=== PATIENT | male | born 1950 | race Caucasian/White ===

== ENCOUNTER 2016-12-10 19:30 | Inpatient (IN) ==
[2016-12-10] MEDS ORDERED: Albuterol 2.5 MG/3 ML NEBULIZER IH ONE (20:08)
--- NOTE | 2016-12-10 20:11 | Emergency Department Note ---
Disposition Clinical Impression: Pneumonia Qualifiers: Pneumonia type: due to unspecified organism Laterality: left Lung location: lower lobe of lung Qualified Code(s): J18.1 - Lobar pneumonia, unspecified organism Disposition: Admitted As Inpatient Condition: Good Referrals: Holly Garg CNP [Primary Care Provider] - Forms: ED Satisfaction Letter Time of Disposition: 22:42 URI/Sore Throat HPI - General Chief Complaint: ED Upper Respiratory Infection Stated Complaint: Cough, fever, chills onset 2 days Time Seen by Provider: 12/10/16 20:05 Source: patient, family Mode of arrival: ambulatory Limitations: no limitations Nursing Notes Reviewed: Yes Vital Signs Reviewed: Yes - History of Present Illness HPI Narrative: 66-year-old white male, history of hypertension and diabetes mellitus, presents with upper respiratory tract symptoms that started on Tuesday. He first noticed a nonproductive cough. On he began having chills and fever. No chest pain. He did notice feeling short of breath, particularly with exertion. He did notice wheezing. He went to [facility] urgent care. He had a chest x-ray done which showed bibasilar atelectasis. He had a little into screen done which was negative. His O2 saturations were low, at 89% on room air. He was given a DuoNeb. He was also noted to be febrile at 101.8. He was sent here for further evaluation. Pt Subjective Complaint: fever, cough Onset (ago): day(s) (3) Duration: intermittent Severity: moderate Improves with: nothing Worsens with: nothing If sputum, description: other (None) Associated symptoms: Reports: fever, chills, cough, shortness of breath, other ( Wheezing) Treatments prior to arrival: other (Do a nap at urgent care.) - Related Data Home Medications Medication Instructions Recorded Confirmed Aspirin [Ecotrin] 325 mg PO DAILY 12/10/16 12/10/16 Carvedilol 3.125 mg PO DAILY 12/10/16 12/10/16 Clopidogrel [Plavix] 75 mg PO DAILY 12/10/16 12/10/16 Fenofibrate [Tricor] 54 mg PO DAILY 12/10/16 12/10/16 Insulin Glargine,Hum.rec.anlog 70 unit SQ HS 12/10/16 12/10/16 [Lantus Solostar] Insulin LISPRO [Humalog] 100 unit SQ TIDWM 12/10/16 12/10/16 Lisinopril [Zestril] 10 mg PO BID 12/10/16 12/10/16 Metformin HCl [Glucophage] 1,000 mg PO DAILY 12/10/16 12/10/16 Simvastatin [Zocor] 40 mg PO HS 12/10/16 12/10/16 Allergies Allergy/AdvReac Type Severity Reaction Status Date / Time No Known Allergies Allergy Verified 12/10/16 18:24 All systems ED: reviewed and negative except as stated. Constitutional: Reports: fever, chills Eyes: Denies: eye discharge ENT ED: Denies: ear pain, throat pain Cardiovascular: Denies: chest pain, palpitations Respiratory: Reports: cough, dyspnea, wheezes. Denies: sputum production Gastrointestinal: Denies: abdominal pain, nausea, vomiting, diarrhea Genitourinary: Denies: urgency, dysuria, frequency Integumentary: Denies: rash Neurological: Denies: headache, weakness URI PMH - Past Medical History Medical history: Reports: diabetes, hypertension, myocardial infarction, renal disease - Social History Smoking Status: Never smoker Alcohol use: Reports: none Drug use: Reports: none Physical Exam - General Limitations: no limitations General appearance: alert, in no apparent distress - Head Head exam: atraumatic, normocephalic - Eye Eye exam: Present: PERRL, EOMI. Absent: scleral icterus, conjunctival injection - ENT ENT exam: normal oropharynx, mucous membranes moist, TM's normal bilaterally - Neck Neck exam: Present: normal inspection, full ROM, trachea midline. Absent: lymphadenopathy - Respiratory Respiratory exam: Present: wheezes (Bilateral, expiratory, worse on expiration.) , other (Decreased breath sounds in both bases with rales in the left base). Absent: respiratory distress - Cardiovascular Cardiovascular exam: Present: regular rate, normal rhythm, systolic murmur ( Left sternal border, 2/6) - Abdominal Exam Abdominal exam: Present: soft, Non-Tender, other (Obese). Absent: organomegaly , mass - Extremities Exam Extremities exam: Present: full ROM, normal capillary refill. Absent: pedal edema, calf tenderness - Neurological Exam Neurological exam: Present: alert, oriented X3, normal gait. Absent: motor sensory deficit - Psychiatric Psychiatric exam: Present: normal affect, normal mood - Skin Skin exam: Present: warm, dry, intact, normal color. Absent: cyanosis, diaphoresis, erythema Course Vital Signs Temperature 101.1 F H 12/10/16 19:33 Pulse Rate 97 12/10/16 19:33 Respiratory Rate 16 12/10/16 19:33 Blood Pressure 119/69 12/10/16 19:33 O2 Sat by Pulse Oximetry 93 12/10/16 19:33 Temperature 101.1 F H 12/10/16 21:26 Pulse Rate 97 12/10/16 21:26 Respiratory Rate 18 12/10/16 21:26 Blood Pressure 121/59 12/10/16 20:33 O2 Sat by Pulse Oximetry 95 12/10/16 21:26 Oxygen Delivery Oxygen Delivery Nasal Cannula Upper Respiratory Infection - MDM Narrative Medical decision making narrative: Based on his clinical presentation, his x-ray appearance, his fever I believe he has a left lower lip. Has bronchospasm with hypoxia. He will prior hospitalization. There is no indication that a septic. He is improved with bronchodilators. His fever was treated. I have initiated IV Rocephin and azithromycin. Blood cultures were obtained prior to antibiotic administration. Dr. Caldera. He has accepted the patient for admission. - Medical Records Medical records reviewed: Yes I reviewed the patient's medical records. Reviewed patient's old medical records, in particular his urgent care visit that occurred just prior to presenting here. His influenza screen was negative. His chest x-ray was read as bibasilar atelectasis. I did review the chest x-ray, I believe that there is an infiltrate in the left base, the left hemidiaphragm is somewhat obscured, and on the lateral view appears to be some infiltrate posteriorly. He has no old EKGs available for comparison. - Lab Data Lab results reviewed: Yes I reviewed the patient's lab results. Result diagrams: 12/10/16 20:24 12/10/16 20:24 Lab Results 12/10/16 12/10/16 12/10/16 Range/Units 20:08 20:24 20:24 WBC 9.8 (4.3-11.1) K/mcL RBC 4.78 (4.19-5.50) M/mcL Hgb 14.2 (12.9-16.9) g/dL Hct 41.6 (37.5-50.1) % MCV 87.0 (83.0-100.0) fL MCH 29.7 (28.0-33.3) pg MCHC 34.1 (31.6-35.5) g/dL RDW 12.9 (11.5-14.5) % Plt Count 171 (140-400) K/mcL MPV 10.9 (9.4-12.4) fL Immature Gran % 0.4 (0-4) % Seg Neutrophils % 82.9 % Lymphocytes % 8.6 % Monocytes % 7.9 % Eosinophils % 0.0 % Basophils % 0.2 % Neutrophils # 8.1 (1.6-8.9) K/mcL Lymphocytes # 0.8 (0.6-4.6) K/mcL Monocytes # 0.8 (0.0-1.3) K/mcL Eosinophils # 0.0 (0.0-0.6) K/mcL Basophils # 0.0 (0.0-0.2) K/mcL Sodium 139 (136-145) mEq/L Potassium 4.2 (3.5-4.5) mEq/L Chloride 99 (98-109) mEq/L Carbon Dioxide 23 (19-29) mEq/L BUN 16 (8-26) mg/dL Creatinine 1.39 H (0.72-1.25) mg/dL Est GFR ( Amer) > 60 (> 60) Est GFR (Non-Af Amer) 51 L (> 60) BUN/Creatinine Ratio 12 (6-26) Glucose 113 H (70-99) mg/dL Calculated Osmolality 290 (280-300) Calcium 9.1 (8.6-10.8) mg/dL Total Bilirubin 0.8 (0.2-1.2) mg/dL AST 36 H (5-34) Units/L ALT 42 (0-55) Units/L Alkaline Phosphatase 47 (38-126) Units/L Troponin I 0.02 (0-0.03) ng/mL B-Natriuretic Peptide (0-100) pg/mL Serum Total Protein 7.4 (6.0-8.3) g/dL Albumin 3.5 (3.5-5.0) g/dL Globulin 3.9 H (2.4-3.5) g/dL Albumin/Globulin Ratio 0.9 L (1.1-2.2) 12/10/16 Range/Units 20:24 WBC (4.3-11.1) K/mcL RBC (4.19-5.50) M/mcL Hgb (12.9-16.9) g/dL Hct (37.5-50.1) % MCV (83.0-100.0) fL MCH (28.0-33.3) pg MCHC (31.6-35.5) g/dL RDW (11.5-14.5) % Plt Count (140-400) K/mcL MPV (9.4-12.4) fL Immature Gran % (0-4) % Seg Neutrophils % % Lymphocytes % % Monocytes % % Eosinophils % % Basophils % % Neutrophils # (1.6-8.9) K/mcL Lymphocytes # (0.6-4.6) K/mcL Monocytes # (0.0-1.3) K/mcL Eosinophils # (0.0-0.6) K/mcL Basophils # (0.0-0.2) K/mcL Sodium (136-145) mEq/L Potassium (3.5-4.5) mEq/L Chloride (98-109) mEq/L Carbon Dioxide (19-29) mEq/L BUN (8-26) mg/dL Creatinine (0.72-1.25) mg/dL Est GFR ( Amer) (> 60) Est GFR (Non-Af Amer) (> 60) BUN/Creatinine Ratio (6-26) Glucose (70-99) mg/dL Calculated Osmolality (280-300) Calcium (8.6-10.8) mg/dL Total Bilirubin (0.2-1.2) mg/dL AST (5-34) Units/L ALT (0-55) Units/L Alkaline Phosphatase (38-126) Units/L Troponin I (0-0.03) ng/mL B-Natriuretic Peptide 40 (0-100) pg/mL Serum Total Protein (6.0-8.3) g/dL Albumin (3.5-5.0) g/dL Globulin (2.4-3.5) g/dL Albumin/Globulin Ratio (1.1-2.2) - Radiology Data Radiology results reviewed: Yes I reviewed the patient's radiology results. X-ray: PA and lateral, bibasilar atelectasis per the radiologist. I believe the lower lobe. This film was done at the urgent care today. - EKG Data EKG attestation: Yes I reviewed and interpreted this EKG. EKG results narrative: Sinus rhythm, rate of 94, left anterior fascicular block, poor R-wave progression, age indeterminate anterior infarct, voltage criteria for LVH. Rhythm strip shows sinus rhythm with rate of 94, DE interval 170 ms, QRS of 98 ms with no other ectopy as interpreted by me. There are no old EKGs available for comparison.
[2016-12-10] MEDS ORDERED: CefTRIAXone 1,000 MG in D5% in Water (Mini-Bag+) 100 ML IVPB ONE (20:26)
[2016-12-10] MEDS ORDERED: Azithromycin 500 MG in D5% in Water 250 ML IVPB ONE (20:26)
[2016-12-10 20:31] LABS: Basophils % 0.2 %; Hematocrit 41.6 % (37.5-50.1); Hemoglobin 14.2 g/dL (12.9-16.9); Immature Granulocytes % 0.4 % (0-4); Lymphocytes # 0.8 K/mcL (0.6-4.6); Lymphocytes % 8.6 %; Mean Corpuscular HGB Conc 34.1 g/dL (31.6-35.5); Mean Corpuscular Hemoglobin 29.7 pg (28.0-33.3); Mean Platelet Volume 10.9 fL (9.4-12.4); Monocytes # 0.8 K/mcL (0.0-1.3); Monocytes % 7.9 %; Neutrophils # 8.1 K/mcL (1.6-8.9); Platelet Count 171 K/mcL (140-400); Red Blood Count 4.78 M/mcL (4.19-5.50); Red Cell Distribution Width 12.9 % (11.5-14.5); Segmented Neutrophils % 82.9 %
[2016-12-10 20:46] LABS: Alanine Aminotransferase 42 Units/L (0-55); Albumin 3.5 g/dL (3.5-5.0); Albumin/Globulin Ratio 0.9 (1.1-2.2); Alkaline Phosphatase 47 Units/L (38-126); Aspartate Amino Transferase 36 Units/L (5-34); BUN/Creatinine Ratio 12 (6-26); Bilirubin,Total 0.8 mg/dL (0.2-1.2); Blood Urea Nitrogen 16 mg/dL (8-26); Calcium 9.1 mg/dL (8.6-10.8); Carbon Dioxide 23 mEq/L (19-29); Chloride 99 mEq/L (98-109); Globulin 3.9 g/dL (2.4-3.5); Glucose 113 mg/dL (70-99); Osmolality,Calculated 290 (280-300); Potassium 4.2 mEq/L (3.5-4.5); Sodium 139 mEq/L (136-145); Total Protein 7.4 g/dL (6.0-8.3); eGFR For African Americans > 60 (> 60); eGFR For Non-African Americans 51 (> 60)
[2016-12-11] MEDS ORDERED: Acetaminophen 325 MG TABLET PO PRN (00:32)
[2016-12-11] MEDS ORDERED: Azithromycin 500 MG in D5% in Water 250 ML IVPB SCH ×2 (00:32→12:00)
[2016-12-11] MEDS ORDERED: Naloxone 0.4 MG/ML INJ IVP PRN (00:32)
[2016-12-11] MEDS ORDERED: CefTRIAXone 1,000 MG in D5% in Water (Mini-Bag+) 100 ML IVPB SCH (00:32)
[2016-12-11] MEDS: MethylPREDNISolone 40 MG/ML VIAL IVP SCH ×2 (02:31→08:46)
[2016-12-11] MEDS: Albuterol 2.5 MG/3 ML NEBULIZER IH SCH ×4 (04:15→21:44)
[2016-12-11] MEDS: CefTRIAXone 1,000 MG in D5% in Water (Mini-Bag+) 100 ML IVPB SCH (06:03)
[2016-12-11] MEDS ORDERED: Dextrose Gel 15 GM PO PRN ×2 (07:43)
[2016-12-11] MEDS ORDERED: D5% in Water 1,000 ML IVC PRN (07:43)
[2016-12-11] MEDS ORDERED: *HR* Dextrose 50 % in Water (Syg) 50 ML SYRINGE IVP PRN (07:43)
[2016-12-11] MEDS ORDERED: INSULIN LISPRO 100 UNIT SQ SCH (08:00)
[2016-12-11] MEDS ORDERED: Insulin LISPRO 300 UNITS/3 ML VIAL SQ SCH ×2 (08:00→21:00)
[2016-12-11] MEDS: Insulin LISPRO 300 UNITS/3 ML VIAL SQ SCH ×4 (08:47→23:16)
[2016-12-11] MEDS: Aspirin Enteric Coated 325 MG Tablet PO SCH (08:48)
[2016-12-11] MEDS: *HR* Metformin 500 MG TABLET PO SCH (08:49)
[2016-12-11] MEDS: Fenofibrate 54 MG TABLET PO SCH (08:50)
[2016-12-11 13:25] LABS: Bilirubin,Urine Negative (Negative); Blood,Urine Negative (Negative); Clarity,Urine Clear (Clear); Color,Urine Yellow (Yellow); Glucose,Urine (UA) >=1000 mg/dL (Normal); Ketones,Urine Trace mg/dL (Negative); Leukocyte Esterase,Urine Negative (Negative); Nitrite,Urine Negative (Negative); Protein,Urine Negative (Neg-Trace); Urobilinogen,Urine Normal (Normal)
--- NOTE | 2016-12-11 16:16 | Internal Med History&Physical ---
Date of Encounter: 12/11/16 Time of Encounter: 15:45 Assessment and Plan (1) Pneumonia Current visit: Yes Status: Acute He has been started on Rocephin and Zithromax. I will add lactobacillus and Robitussin. Qualifiers: Pneumonia type: due to unspecified organism Laterality: left Lung location: lower lobe of lung Qualified Code(s): J18.1 - Lobar pneumonia, unspecified organism (2) Azotemia Current visit: Yes Status: Acute Acute. Creatinine was 0.93 on 10/27/2016 with estimated GFR greater than 60. We will recheck labs in a.m. (3) Hypertension Current visit: Yes Status: Chronic Continue Coreg and Zestril Qualifiers: Hypertension type: essential hypertension Qualified Code(s): I10 - Essential (primary) hypertension (4) DM type 2 (diabetes mellitus, type 2) Current visit: Yes Status: Chronic Continue Lantus, Glucophage, and Accu-Cheks with SSI Qualifiers: Diabetes mellitus complication status: with kidney complications Diabetes mellitus complication detail: with microalbuminuria Diabetes mellitus care home insulin use: with ocean transportation intermediary use Qualified Code(s): E11.29 - Type 2 diabetes mellitus with other diabetic kidney complication; R80.9 - Proteinuria, unspecified; Z79.4 - half-way (current) use of insulin Internal Medicine - H&P: HPI Chief complaint: Cough with dyspnea Admitted From: Home Plans for Post Hospital Care: Home History of present illness: Mr. David is a 66 year old male who was sent to the emergency room from urgent care after he presented with worsening cough over the preceding 2 days. The cough was productive of greenish sputum occasionally. He had developed a fever at work earlier the day of admission and returned home early. He was evaluated in emergency room and felt to have bibasilar pneumonia. He was admitted to [facility] floor for ongoing care needs. He states he is a lifelong nonsmoker. He had pneumonia on a previous occasion approximately 40 years ago. He has worked 2 years in a [employer] yard with minimal exposure to fumes or toxins. He does not have other documented chronic lung disease. Past Med Surg Social Fam HX - Past Medical History Medical history: diabetes, hyperlipidemia, hypertension, myocardial infarction, renal disease Psychiatric history: no psych history - Social History Smoking Status: Never smoker Smokeless Tobacco Status: No Alcohol use: none Drug use: none - Family History Father Name: viola david Living Status: Hx Family Cardiac Disorders: Yes Internal Medicine - H&P: Meds Aspirin [Ecotrin] 325 mg PO DAILY 12/10/16 [History] Carvedilol 3.125 mg PO DAILY 12/10/16 [History] Clopidogrel [Plavix] 75 mg PO DAILY 12/10/16 [History] Fenofibrate [Tricor] 54 mg PO DAILY 12/10/16 [History] Insulin Glargine,Hum.rec.anlog [Lantus Solostar] 70 unit SQ HS 12/10/16 [History ] Lisinopril [Zestril] 10 mg PO BID 12/10/16 [History] Metformin HCl [Glucophage] 1,000 mg PO DAILY 12/10/16 [History] Simvastatin [Zocor] 40 mg PO HS 12/10/16 [History] Insulin LISPRO [Humalog Kwikpen U-100] 0 unit SQ TIDWM 12/11/16 [History] Allergies No Known Allergies Allergy (Verified 12/10/16 18:24) All Systems PM: A 10-system review of systems was performed and is negative for pertinent findings except as documented above in the HPI. Review of systems: Gen.: He states he has intentionally lost 6 pounds in the past 2 months. His weight had been stable previously. Cardiovascular: He has history of hypertension and known ASHD status post NH approximately 5 years ago. He had 2 stents placed. He has not had stress test or heart catheter since then but is scheduled for a stress test later this month. He denies heart failure DVT or pulmonary embolus. Respiratory: As per history of present illness GI: He denies disorders of his liver gallbladder or exocrine pancreas : He reports he has been diagnosed with proteinuria but denies other kidney or bladder disorders. Neurologic: He denies large distribution strokes or seizures Endocrine: He was diagnosed with DM 2 approximately 1996. He has hyperkalemia but denies thyroid disease Hematology/oncology: Denies blood disorders cancers or anemia Psychiatric: He denies anxiety depression or other mental health issues Musk skeletal: He denies arthritis gout or other bone joint or muscle disorders. - Constitutional Vitals: Temp Pulse Resp BP Pulse Ox 98.7 F 83 16 103/54 94 12/11/16 12:00 12/11/16 12:00 12/11/16 12:00 12/11/16 12:00 12/11/16 12:00 Exam: Gen.: He is a well-developed well-nourished male who appears in no severe distress at present time HEENT: Head is atraumatic and normocephalic. Eyes: EOMI. There is no scleral icterus. Mouth: Mucosa is moist. Neck: Supple and nontender. There is no thyromegaly or adenopathy noted. Heart: Regular without murmurs gallops or ectopics. Lungs: He has diminished breath sounds diffusely. There is egophony in the left mid and lower lung torres posteriorly. No wheezes or crackles are heard. Abdomen: Soft and nontender. No masses or guarding are noted. Extremities: There is no cyanosis edema or clubbing noted. Dorsalis pedis and posttibial pulses are 1-2 over 2 bilaterally. Neurologic: Mental status: He is talkative and a good historian. Cranial nerves : Smile is symmetric. Forehead wrinkles bilaterally. Tongue protrudes midline. EOMI. Motor: There is no pronator drift. Cerebellar: Finger to nose is intact bilaterally. Skin: Warm and dry Internal Med - H&P Results - Labs CBC & Chem 7: 12/10/16 20:24 12/10/16 20:24 Labs: Urine 12/11/16 Range/Units 10:10 Urine Color Yellow (Yellow) Urine Clarity Clear (Clear) Urine pH 5.0 (5.0-8.0) pH Units Ur Specific [place] 1.010 (1.010-1.025) Urine Protein Negative (Neg-Trace) mg/dL Urine Glucose (UA) >=1000 H (Normal) mg/dL
[2016-12-11] MEDS: *HR* Enoxaparin 40 MG/0.4 ML SYRINGE SQ SCH (17:02)
[2016-12-11] MEDS ORDERED: Insulin DETEMIR 100 UNIT/ML per UNIT SQ SCH (21:00)
[2016-12-11] MEDS ORDERED: Insulin DETEMIR 100 UNIT/ML X5UNITS SQ SCH (21:00)
[2016-12-12] MEDS: Albuterol 2.5 MG/3 ML NEBULIZER IH SCH ×2 (04:31→09:50)
[2016-12-12 06:19] LABS: Hematocrit 40.5 % (37.5-50.1); Hemoglobin 13.8 g/dL (12.9-16.9); Mean Corpuscular HGB Conc 34.1 g/dL (31.6-35.5); Mean Corpuscular Hemoglobin 29.7 pg (28.0-33.3); Mean Corpuscular Volume 87.3 fL (83.0-100.0); Mean Platelet Volume 11.4 fL (9.4-12.4); Platelet Count 180 K/mcL (140-400); Red Blood Count 4.64 M/mcL (4.19-5.50)
[2016-12-12 06:30] LABS: BUN/Creatinine Ratio 21 (6-26); Blood Urea Nitrogen 23 mg/dL (8-26); Calcium 8.6 mg/dL (8.6-10.8); Carbon Dioxide 24 mEq/L (19-29); Chloride 100 mEq/L (98-109); Glucose 301 mg/dL (70-99); Osmolality,Calculated 299 (280-300); Potassium 4.2 mEq/L (3.5-4.5); Sodium 137 mEq/L (136-145); eGFR For African Americans > 60 (> 60); eGFR For Non-African Americans > 60 (> 60)
[2016-12-12] MEDS: CefTRIAXone 1,000 MG in D5% in Water (Mini-Bag+) 100 ML IVPB SCH (06:38)
[2016-12-12] MEDS: *HR* Enoxaparin 40 MG/0.4 ML SYRINGE SQ SCH ×2 (06:41→07:27)
[2016-12-12 07:37] LABS: Monocytes # 0.2 K/mcL (0.0-1.3); Neutrophils # 10.7 K/mcL (1.6-8.9)
[2016-12-12 07:40] VITALS: BP 123/75
[2016-12-12] MEDS: Insulin LISPRO 300 UNITS/3 ML VIAL SQ SCH (09:02)
[2016-12-12] MEDS: Aspirin Enteric Coated 325 MG Tablet PO SCH (09:03)
[2016-12-12] MEDS: Fenofibrate 54 MG TABLET PO SCH (09:04)
[2016-12-12] MEDS: *HR* Metformin 500 MG TABLET PO SCH (09:05)
--- NOTE | 2016-12-12 10:05 | Discharge Summary ---
Date of Encounter: 12/12/16 Time of Encounter: 09:55 - Discharge Diagnosis (1) Pneumonia Priority: Primary Status: Acute Qualifiers: Pneumonia type: due to unspecified organism Laterality: left Lung location: lower lobe of lung Qualified Code(s): J18.1 - Lobar pneumonia, unspecified organism (2) Azotemia Priority: Secondary Status: Resolved (3) Hypertension Priority: Secondary Status: Chronic Qualifiers: Hypertension type: essential hypertension Qualified Code(s): I10 - Essential (primary) hypertension (4) DM type 2 (diabetes mellitus, type 2) Priority: Secondary Status: Chronic Qualifiers: Diabetes mellitus complication status: with kidney complications Diabetes mellitus complication detail: with microalbuminuria Diabetes mellitus terminal makeup operator insulin use: with jail use Qualified Code(s): E11.29 - Type 2 diabetes mellitus with other diabetic kidney complication; R80.9 - Proteinuria, unspecified; Z79.4 - [facility] (current) use of insulin - Discharge Medications Prescriptions: Cefuroxime PO [Ceftin] 500 mg PO Q12HR #8 tablet Azithromycin [Zithromax] 250 mg PO DAILY #4 tablet Lactobacillus [Culturelle] 1 each PO BID #8 cap.sprink Home Medications: Aspirin [Ecotrin] 325 mg PO DAILY 12/10/16 [History] Carvedilol 3.125 mg PO DAILY 12/10/16 [History] Clopidogrel [Plavix] 75 mg PO DAILY 12/10/16 [History] Fenofibrate [Tricor] 54 mg PO DAILY 12/10/16 [History] Insulin Glargine,Hum.rec.anlog [Lantus Solostar] 70 unit SQ HS 12/10/16 [History ] Lisinopril [Zestril] 10 mg PO BID 12/10/16 [History] Metformin HCl [Glucophage] 1,000 mg PO DAILY 12/10/16 [History] Simvastatin [Zocor] 40 mg PO HS 12/10/16 [History] Insulin LISPRO [Humalog Kwikpen U-100] 0 unit SQ TIDWM 12/11/16 [History] Azithromycin [Zithromax] 250 mg PO DAILY #4 tablet 12/12/16 [Rx] Cefuroxime PO [Ceftin] 500 mg PO Q12HR #8 tablet 12/12/16 [Rx] Lactobacillus [Culturelle] 1 each PO BID #8 cap.sprink 12/12/16 [Rx] Allergies/Adverse Reactions: Allergies No Known Allergies Allergy (Verified 12/10/16 18:24) Date of admission: 12/11/16 16:26 Primary care physician: Holly Garg CNP - Patient Status Disposition: Home, Self-Care Condition: Good Functional capacity at discharge: independent ambulation Overall status at discharge: patient is progressing back to baseline - Discharge Instructions Follow Up With: Holly Garg CNP [Primary Care Provider] - 1 week - Diet and Activity Activity: wear oxygen at all times Diet: advance to your usual diet Hospital course: Mr. Santos is a 66 year old male who was sent to the emergency room from urgent care after he presented with worsening cough over the preceding 2 days. The cough was productive of greenish sputum occasionally. He had developed a fever at work earlier the day of admission and returned home early. He was evaluated in emergency room and felt to have bibasilar pneumonia. He was admitted to [facility] floor for ongoing care needs. Initial orders written by the emergency room physician. I saw him on December 11 and performed the history and physical. He was started on Rocephin and Zithromax. He had clinical improvement with decreased fever. The WBC was slightly elevated at 11.9 K on the day of discharge with left shift still present. He will continue on antibiotic and probiotic for 4 additional days after discharge. Room air oximetry showed saturations decreasing to 87% on 6 minute walk. He had slight shortness of breath and required immediate reinstitution of oxygen to improve saturations to normal range. He will be discharged home with oxygen at 2 L/m by nasal cannula 04/04 with portable gas and concentrator. He will remain off work until clearance to return is given by his PCP. His azotemia improved with creatinine decreasing to 1.10 the day of discharge with estimated GFR greater than 60. He will follow with his PCP Holly Garg CNP within 1 week. - Time Spent with Patient Total time spent providing and/or coordinating discharge services: - Constitutional Vitals: Temp Pulse Resp BP Pulse Ox 98.4 F 68 16 123/75 95 12/12/16 07:39 12/12/16 07:39 12/12/16 09:54 12/12/16 07:39 12/12/16 09:54
--- NOTE | 2016-12-12 10:49 | Electrocardiograph Report ---
[address] [place], [place] [address] Test Date: 2016-12-10 Pat Name: Julián Santos Department: [id number] Room: [facility] Gender: M Apprentice Electrician: Deepa : 1950 Requested By: Mark Breen Order Number: [id number] Reading MD: Dallas Croft MD Measurements Intervals [place] Rate: 94 P: 44 [place]: 170 QRS: -67 QRSD: 98 T: 71 QT: 344 QTc: 396 Interpretive Statements SINUS RHYTHM LEFT ANTERIOR FASCICULAR BLOCK POSSIBLE ANTERIOR MYOCARDIAL INFARCTION, OF INDETERMINATE AGE Electronically Signed On 12-12-2016 10:47:12 EDT by Dallas Croft MD
== END 2016-12-12 13:07 | disposition home or self-care (01) | DRG 195 ==
LOC: EMEROOPIK 19:30 → INPPIK 19:30
PROVIDERS: ADMIT Internal Medicine; ATTEND Internal Medicine